=== PATIENT | female | born 1975 ===

== ENCOUNTER 2016-12-23 19:41 | Emergency (ER) | payer OTHER ==
[~2016-12-23 19:41] MED LIST: CIPRO 500MG (E500 MG PO; PYRIDIUM100 MG PO
--- NOTE | 2016-12-23 20:44 | ED GI/GU/ABDOMINAL COMPLAINT ---
History of Present Illness General Chief Complaint: General Adult Stated Complaint: N/V/D SINCE YESTERDAY/ABD PAIN Source: patient Exam Limitations: no limitations Vital Signs & Intake/Output Vital Signs & Intake/Output Vital Signs Date Time Temp Pulse Resp B/P Pulse O2 O2 Flow FiO2 Ox Delivery Rate 12/23 2141 98.5 85 18 123/66 99 Room Air 12/23 1946 98.5 99 131/91 97 Allergies Coded Allergies: Penicillins (RASH A KID 12/23/16) acetaminophen (HEART PALPITATIONS, RASH 12/23/16) aspirin (HIVES 12/23/16) pseudoephedrine (SEVERE HEART PALPITATIONS 12/23/16) Reconcile Medications Levothyroxine Sodium 50 MCG TABLET 1 TAB PO DAILY THYROID (Reported) Ondansetron (Zofran Odt) 4 MG TAB.RAPDIS 1 TAB SL TID PRN NAUASE Phenobarb/Hyoscy/Atropine/Scop (Belladonna-Phenobarbital Tab) 16.2 MG TABLET 1 TAB PO TID PRN ABDOMINAL CRAMPING Triage Note: PER PT "HAVE THE NOROVIRUS" WORK AT [employer], AND STARTED WITH EXPLOSIVE DIARRHEA YESTERDAY, VOMITING AND ARGUETA SINCE YESTERDAY. ALSO HAVE MENSES. CANNOT KEEP ANYTHING Triage Nurses Notes Reviewed? yes ? n Is pt currently ? 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 Multiple coworkers and patient's that she takes care of have the norO virus and she feels though she has contracted this as well. She had tactile fever chills and diaphoresis multiple episodes of nausea and day 1 and on day 2 which was early this morning she had at around 11 AM started having severe explosive watery diarrhea, too many episodes to count. She cannot take in fluids, she feels nauseous, she has not eaten anything all day, she is feeling lightheaded when she exerts herself. She tried Tylenol with some relief of her body aches but they have returned and are persistent. Her symptoms are moderate to severe. She had previous pelvic surgery related to ovarian fibroids and fertility. She is complaining of severe intermittent abdominal cramping. She is currently on her menstrual cycle Past History Travel History Traveled to [place] past 21 day No Medical History Any Pertinent Medical History? see below for history Neurological: NONE EENT: NONE Cardiovascular: NONE Respiratory: NONE Gastrointestinal: NONE Hepatic: NONE Renal: NONE Musculoskeletal: NONE Psychiatric: NONE Endocrine: THYROID Blood Disorders: NONE Cancer(s): NONE Surgical History Surgical History: MYOMECTOMY, MULTIPLE PELVIC SURGERIES RELATED TO FERTILITY Psychosocial History What is your primary language Macedonian Tobacco Use: Never used Family History Hx Contributory? No Review of Systems Review of Systems Constitutional: Reports: see HPI. EENTM: Reports: no symptoms. Respiratory: Reports: no symptoms. Cardiovascular: Reports: no symptoms. GI: Reports: see HPI. Genitourinary: Reports: no symptoms. Musculoskeletal: Reports: no symptoms. Skin: Reports: no symptoms. Neurological/Psychological: Reports: no symptoms. Hematologic/Endocrine: Reports: no symptoms. Immunologic/Allergic: Reports: no symptoms. All Other Systems: Reviewed and Negative Physical Exam Physical Exam Respiratory: normal breath sounds, chest non-tender, no respiratory distress Cardiovascular: regular rate/rhythm Gastrointestinal: normal bowel sounds, soft, non-tender, no organomegaly Comments: Well-developed well-nourished no apparent distress. Patient appears pale HEENT: Atraumatic, extraocular motion intact. Mucous membranes are dry Neck: Supple, no lymphadenopathy Back: Nontender Respiratory: No respiratory distress Extremities: No edema, full range of motion Neuro: Alert and oriented x3 Psych: Mood affect normal, normal memory normal judgment. Skin: Skin is dry, no rash on exposed skin Core Measures ACS in differential dx? No Severe Sepsis Present: No Septic Shock Present: No Progress Differential Diagnosis: AAA, AMI, appendicitis, biliary colic, bowel obstruction , colon cancer, cholecystitis, diverticulitis, ectopic , endometritis, esophageal varices, gastritis, hepatitis, hernia, hemorrhoids, ischemic bowel, inflamm bowel dis, intrauterine , kidney stone, Nicolasa-Melony tear, ovarian cyst, ovarian torsion, pancreatitis, PID/cervicitis, peptic ulcer, PUD/ GERD, perforated viscous, SBO, threatened AB, UTI/pyelo Plan of Care: Orders Procedure Date/time Status Saline Lock 12/23 2038 Active URINE 12/23 2006 Complete URINALYSIS 12/23 2006 Complete Laboratory Tests 12/23/162024: Urine Color YEL, Urine Clarity CLEAR, Urine pH 7.0, Ur Specific [place] 1.010, Urine Protein NEG, Urine Ketones NEG, Urine Nitrite NEG, Urine Bilirubin NEG, Urine Urobilinogen 1.0, Ur Leukocyte Esterase NEG, Ur Microscopic SEDIMENT EXAMINED, Urine RBC 15-25 H, Ur Epithelial Cells MOD H, Urine Hemoglobin MOD H, Urine Glucose NEG, Urine Test NEGATIVE Initial ED EKG: none Comments: Treated with 1 L of IV fluid and 4 mg of IV Zofran. Symptoms have improved on reevaluation. She is feeling well and is stable for discharge home, she is tolerating by mouth fluids. She was given Zofran as outpatient and prescription form and clear liquid diet recommended. Departure Departure Disposition: HOME OR SELF CARE Condition: Stable Clinical Impression Primary Impression: Gastroenteritis Secondary Impressions: Dehydration Referrals: JENNIFER LINARES,JAMMIE Mckeon (PCP/Family) Additional Instructions: TAKE ZOFRAN FOR NAUSEA, BELLADONNA FOR ABDOMINAL CRAMPING. CLEAR LIQUID DIET AND ADVANCE TOLERATED OVER 12-24HRS. RETURN WITH WOSRENING ABDOMINAL PAIN, NAUSEA, VOMITING OR FEVER. Departure Forms: Customer Survey General Discharge Information Prescriptions: Current Visit Scripts Ondansetron (Zofran Odt) 1 TAB SL TID PRN NAUASE #15 TAB Phenobarb/Hyoscy/Atropine/Scop (Belladonna-Phenobarbital Tab) 1 TAB PO TID PRN ABDOMINAL CRAMPING #9 TAB
[2016-12-23] MEDS ORDERED: LEVOTHYROXINE50 MCG PO (21:16)
[2016-12-23 21:42] VITALS: BP 123/66
[2016-12-23] MEDS ORDERED: BELLADONNA-PH16.2 MG PO (22:10)
[2016-12-23] MEDS ORDERED: ZOFRAN ODT4 M1 SL (22:10)
== END 2016-12-23 22:16 ==
LOC: ERH 19:41
DX: K52.9 Noninfective gastroenteritis and colitis, unspecified (principal); E86.0 Dehydration
CPT/HCPCS: 81001; 81025; 96361; 96374; 96375; J1885; J2405